=== PATIENT | male | born 1985 | race Caucasian/White ===

== ENCOUNTER 2016-08-06 19:47 | Emergency (ER) | payer OTHER ==
[2016-08-06 19:52] VITALS: BP 130/75; PULSE 67; TEMP 97.8; BMI 21.4
[2016-08-06] MEDS ORDERED: KETOROLAC TROMETHAMINE 60 MG/2 ML VIAL IM ONE (20:13)
[2016-08-06] MEDS ORDERED: KETOROLAC TROMETHAMINE 60 MG/2 ML VIAL ONE (20:15)
--- NOTE | 2016-08-06 20:18 | PDOC ---
History of Present Illness - General Chief Complaint: Pain, Acute Stated Complaint: BACK PAIN Time Seen by Provider: 08/06/16 20:01 History Source: Patient Exam Limitations: No Limitations - History of Present Illness Initial Comments: 08/06/16 20:15 30-year-old male presents the ED with complaints of posterior neck pain radiating down to his left first and second digits intermittently for the past few months. 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 Patient states had taken nothing for the pain and decided come to the ER today for further evaluation. Patient denies headache, weakness, skin discoloration, chest pain, shortness of breath, radiation down to his lower back. Occurred: reports: other Severity: reports: mild Pain Location: reports: neck Method of Injury: Yes: other Associated Symptoms (Fall): neck pain Past History - Past Medical History Allergies/Adverse Reactions: Allergies Allergy/AdvReac Type Severity Reaction Status Date / Time No Known Allergies Allergy Verified 08/06/16 19:51 Home Medications: Ambulatory Orders Albuterol Sulfate Inhaler - [Ventolin HFA Inhaler -] 2 inh IH PRN PRN 09/10/13 Asthma: Yes - Immunization History Immunization Up to Date: Yes - Psycho/Social/Smoking Cessation Hx Anxiety: No Suicidal Ideation: No Smoking Status: Yes Smoking History: Never smoked Number of Cigarettes Smoked Daily: 5 Hx Alcohol Use: No Patient Lives Alone: No Lives with/in: parents Trauma Specific PMHX - Complaint Specific PMHX Neck Injury: Yes Review of Systems - Review of Systems Able to Perform ROS?: Yes Constitutional: No: Symptoms Reported Respiratory: No: Symptoms reported Musculoskeletal: Yes: Neck Pain Integumentary: No: Symptoms Reported Neurological: Yes: Tingling (left 1st and 2nd fingers) Endocrine: No: Symptoms Reported Hematologic/Lymphatic: No: Symptoms Reported *Physical Exam - Vital Signs Last Vital Signs Temp Pulse Resp BP Pulse Ox 97.8 F 67 16 130/75 100 08/06/16 19:51 08/06/16 19:51 08/06/16 19:51 08/06/16 19:51 08/06/16 19:51 - Physical Exam General Appearance: Yes: Nourished, Appropriately Dressed. No: Apparent Distress Neck: positive: Tender (C5-C6), Normal Thyroid, Supple. negative: Decreased range of motion Respiratory/Chest: positive: Lungs Clear, Normal Breath Sounds. negative: Respiratory Distress, Accessory Muscle Use Musculoskeletal: negative: CVA Tenderness, Vertebral Tenderness Extremity: positive: Normal Capillary Refill, Normal Inspection, Normal Range of Motion. negative: Tender Integumentary: positive: Normal Color, Warm, Moist Neurologic: positive: Motor Strength 5/5 (left hand grasp) ED Treatment Course - RADIOLOGY Radiology Studies Ordered: Category Date Time Status SPINE-CERVICAL [RAD] Stat Radiology 08/06/16 20:13 Ordered Medical Decision Making - Medical Decision Making 08/06/16 20:17 Patient complains of ongoing neck pain now rating down to his left hand for the past few weeks. Patient on exam had point tenderness at C5-C6 and I have ordered an x-ray. Patient also ordered for Toradol IM. 08/06/16 21:01 X-ray negative for acute findings. Patient will be discharged home to take NSAIDs such as Motrin 600 mg every 8 hours for discomfort and apply heat to the affected area. Patient also will be given referral to orthopedist. *DC/Admit/Observation/Transfer Diagnosis at time of Disposition: Cervical radiculopathy at C5 - Discharge Dispostion Disposition: HOME Condition at time of disposition: Good - Referrals Referrals: Wilton Duggan MD [Staff Physician] - - Patient Instructions Printed Discharge Instructions: DI for Cervical Radiculopathy Additional Instructions: I have enclosed some instructions on radiculopathy. I recommend taking 600 mg of Motrin every 6-8 hours for discomfort and applying heat to the affected area. I've also given your referral to an orthopedist if pain continues
[2016-08-06] MEDS ORDERED: IBUPROFEN 600 MG TABLET (FP) PO ONE ×2 (21:08→21:30)
== END 2016-08-06 21:34 | disposition home or self-care (01) ==
LOC: JERFT 19:47
DX: M54.12 Radiculopathy, cervical region (principal)
CPT/HCPCS: 72050-TC; 99281-25

== ENCOUNTER 2017-07-22 07:39 | Emergency (ER) | payer OTHER ==
[2017-07-22 07:46] VITALS: BP 109/78; PULSE 83; TEMP 98.5; BMI 22.8
[2017-07-22] MEDS ORDERED: DIPHTH,PERTUSS(ACELL),TET 0.5 ML DISP.SYRIN IM ONE (08:34)
--- NOTE | 2017-07-22 08:42 | PDOC ---
History of Present Illness - General Chief Complaint: Injury Stated Complaint: HAND LACERATION Time Seen by Provider: 07/22/17 08:14 History Source: Patient Exam Limitations: No Limitations - History of Present Illness Occurred: reports: yesterday Severity: reports: mild, moderate Pain Location: reports: upper extremity (right hand ) Modifying Factors: improves with: None Loss of Consciousness: no loss of consciousness Past History - Travel Traveled outside of the country in the last 30 days: No Close contact w/someone who was outside of country & ill: No - Past Medical History Allergies/Adverse Reactions: Allergies Allergy/AdvReac Type Severity Reaction Status Date / Time No Known Allergies Allergy Verified 07/22/17 07:45 Home Medications: Ambulatory Orders NK [No Known Home Medication] 07/22/17 Asthma: Yes COPD: No - Immunization History Immunization Up to Date: Yes - Suicide/Smoking/Psychosocial Hx Smoking Status: Yes Smoking History: Never smoked Have you smoked in the past 12 months: No Number of Cigarettes Smoked Daily: 5 Information on smoking cessation initiated: No Hx Alcohol Use: No Drug/Substance Use Hx: No Substance Use Type: None Trauma Specific PMHX - Complaint Specific PMHX Neck Injury: Yes Review of Systems - Review of Systems Able to Perform ROS?: Yes Is the patient limited Iranian proficient: Yes Constitutional: Yes: See HPI. No: Symptoms Reported HEENTM: Yes: See HPI. No: Symptoms Reported Respiratory: No: Symptoms reported Musculoskeletal: Yes: Symptoms Reported, See HPI, Joint Pain, Joint Swelling Integumentary: Yes: Symptoms Reported, See HPI, Other (hand laceration/ swellng to dorsum right lateral hand ) All Other Systems: Reviewed and Negative *Physical Exam - Vital Signs Last Vital Signs Temp Pulse Resp BP Pulse Ox 98.5 F 83 18 109/78 99 07/22/17 07:41 07/22/17 07:41 07/22/17 07:41 07/22/17 07:41 07/22/17 07:41 - Physical Exam General Appearance: Yes: Nourished, Appropriately Dressed. No: Apparent Distress HEENT: positive: SATNAM, Normal ENT Inspection, TMs Normal, Pharynx Normal Neck: positive: Supple. negative: Tender Extremity: positive: Normal Capillary Refill, Normal Inspection, Normal Range of Motion (with pain on flexion and extension. ) Integumentary: positive: Dry, Warm, Swelling, Other (2cm laceration to dorsum of hand with some swelling has tenderness at wound site although no apparent foreign body, full range of motion of fingers with neurovascular intact distal to injury.). negative: Erythema Neurologic: positive: research staff member II-XII NML intact, Fully Oriented, Alert, Normal Mood/ Affect, Normal Response, Motor Strength 5/5 Progress Note - Progress Note Progress Note: Soaked, cleaned, and dressed with bacitracin ointment and bulky dressing. Tetanus/diphtheria/pertussis booster updated today. Patient will watch for any changes, worsening of swelling, or any evidence of infection call here for further treatment as indicated. *DC/Admit/Observation/Transfer Diagnosis at time of Disposition: Laceration of hand Qualifiers: Encounter type: initial encounter Foreign body presence: without foreign body Laterality: right Qualified Code(s): S61.411A - Laceration without foreign body of right hand, initial encounter - Discharge Dispostion Disposition: HOME Condition at time of disposition: Stable Admit: No - Referrals Referrals: Jessie Nelson [Primary Care Provider] - - Patient Instructions Printed Discharge Instructions: DI for Minor Laceration Additional Instructions: Rest, keep area elevated. Avoid strenuous activity or exercise until wound is healed Use hot soaks to area to bring more blood to the surface and encourage drainage May change dressings as needed to keep clean - Allow water from shower to wash area thoroughly for 2-3 minutes, and pat dry upon exit of shower and replace dressing. Change his dressing daily until the wound is completely healed. May use Tylenol or Motrin for mild pain relief Followup with private physician in 2-3 days for wound check Return to emergency Department for worsening swelling, pain, redness, fevers as needed tetanus/diphtheria/pertussis booster was updated today - Post Discharge Activity
== END 2017-07-22 08:51 | disposition home or self-care (01) ==
LOC: JERFT 07:39 → JER 07:39 → JERFT 08:51
PROC: 3E0234Z Introduction of Serum, Toxoid and Vaccine into Muscle, Percutaneous Approach (ICD-10-PCS; principal; 2017-07-22)
DX: S61.411A Laceration without foreign body of right hand, initial encounter (principal); W25.XXXA Contact with sharp glass, initial encounter; Y93.G1 Activity, food preparation and clean up; Y92.010 Kitchen of single-family (private) house as the place of occurrence of the external cause; Y99.8 Other external cause status
CPT/HCPCS: 73130-TC-RT-FY; 90471; 90715; 99281-25

== ENCOUNTER 2023-01-18 13:08 | Emergency (ER) | payer OTHER ==
[2023-01-18 13:14] VITALS: BP 117/75; PULSE 85; RESP 18; TEMP 98.1; BMI 24.3
[2023-01-18] MEDS ORDERED: CEFTRIAXONE 500 MG in DEXTROSE 5%-WATER - 50 ML IVPB ONE (14:17)
[2023-01-18] MEDS ORDERED: DOXYCYCLINE HYCLATE 100 MG CAPSULE PO ONE ×2 (14:19→14:20)
== END 2023-01-18 14:27 | disposition home or self-care (01) ==
LOC: JER 13:08 → JERFT 13:08
PROC: 3E023GC Introduction of Other Therapeutic Substance into Muscle, Percutaneous Approach (ICD-10-PCS; principal; 2023-01-18)
DX: Z20.2 Contact with and (suspected) exposure to infections with a predominantly sexual mode of transmission (principal)
CPT/HCPCS: 36415; 87491; 87591; 99284-25

== ENCOUNTER 2023-06-16 13:29 | Emergency (ER) | payer OTHER ==
[2023-06-16 13:39] VITALS: BP 120/77; PULSE 70; RESP 18; TEMP 98.2; BMI 25.8
[2023-06-16] MEDS ORDERED: DOXYCYCLINE HYCLATE 100 MG CAPSULE PO ONE ×2 (14:41→14:46)
[2023-06-16] MEDS ORDERED: cefTRIAXone SODIUM 1 GM VIAL ONE (14:53)
[2023-06-16 15:02] LABS: URINE APPEARANCE Error; URINE BILIRUBIN NEGATIVE (NEGATIVE); URINE COLOR YELLOW; URINE GLUCOSE (UA) NEGATIVE (NEGATIVE); URINE KETONE NEGATIVE (NEGATIVE); URINE LEUK ESTERASE NEGATIVE (NEGATIVE); URINE NITRITE NEGATIVE (NEGATIVE); URINE PROTEIN NEGATIVE (NEGATIVE)
== END 2023-06-16 15:04 | disposition home or self-care (01) ==
LOC: JERFT 13:29 → JER 13:29 → JERFT 15:04
DX: R36.9 Urethral discharge, unspecified (principal); Z11.3 Encounter for screening for infections with a predominantly sexual mode of transmission
CPT/HCPCS: 36415; 81003; 87086; 87491; 87591; 99283-25

== ENCOUNTER 2024-09-25 07:54 | Emergency (ER) | payer SELFPAY ==
[2024-09-25 08:00] VITALS: BP 118/85; PULSE 63; RESP 18; TEMP 97.9; BMI 23.5
[2024-09-25] MEDS ORDERED: DOXYCYCLINE HYCLATE 100 MG CAPSULE PO ONE (08:21)
[2024-09-25] MEDS: LIDOCAINE HCL 1%, 10 MG/ML (50 mL VIAL) INF ONE (08:37)
[2024-09-25] MEDS: DOXYCYCLINE HYCLATE 100 MG CAPSULE PO ONE (08:37)
[2024-09-26 20:39] LABS: HCV DIAGNOSTIC IN-HOUSE W/RFLX NON-REACTIVE (NONREACTIVE)
[2024-09-26 20:40] LABS: HIV INTERPRETATION NEGATIVE (NEGATIVE)
== END 2024-09-25 08:50 | disposition home or self-care (01) ==
LOC: JERFT 07:54
DX: R36.9 Urethral discharge, unspecified (principal); Z20.2 Contact with and (suspected) exposure to infections with a predominantly sexual mode of transmission
CPT/HCPCS: 36415; 86803; 87389; 87491; 87591; 87661; 99284-25